=== PATIENT | male | born 1990 | race Caucasian/White ===

== ENCOUNTER 2021-11-18 11:20 | Day surgery (SDC) | payer MEDICAID ==
[2021-11-16 11:38] VITALS: BMI 27.5
--- NOTE | 2021-11-17 15:17 | HP ---
HISTORY AND PHYSICAL DATE OF SURGERY: 11/18/2021 Thanh Goode is a 31-year-old gentleman seen with a septic left knee prepatellar bursitis. I recommended bursectomy. The procedure, risks, complications, benefits and recovery were discussed. He was agreeable. Consent was obtained. PAST MEDICAL HISTORY: Asthma. PAST SURGICAL HISTORY: [place] teeth excision. DAILY MEDICATIONS: Symbicort. ALLERGIES: NONE. SOCIAL HISTORY: He denies tobacco use. PHYSICAL EVALUATION OF LEFT KNEE: There is an area of significant prepatellar swelling. There is also warmth and erythema in that area. There are no open wounds or drainage. His range of motion is zero to 130. There is no intraarticular effusion present. Radiographs of the left knee revealed no bony abnormality. IMPRESSION: Left knee septic prepatellar bursitis. PLAN: Left knee patellar bursectomy. MMODL / IJN: [id number] /
[~2021-11-18 11:20] MED LIST: DEXAMETHASONE SOD PHOSPHATE 4 MG/ML 1 ML VIAL IV ONE; LACTATED RINGERS 1,000 ML IV SCH; LIDOCAINE 1% (10MG/ML) FOR IV START INTRADERMA PRN; MIDAZOLAM 2 MG/2 ML VIAL IV PRN; ONDANSETRON 4 MG/2 ML VIAL IVP ONE
[2021-11-18] MEDS ORDERED: LACTATED RINGERS 1,000 ML IV ONE (12:57)
[2021-11-18] MEDS ORDERED: SCOPOLAMINE 1 MG/72 HR PATCH TRANSDERM ONE (12:57)
[2021-11-18 13:03] LABS: Basophils # (A) 0.1 k/uL (0-0.2); Basophils % (A) 1 %; Eosinophils # (A) 0.1 k/uL (0-0.7); Eosinophils % (A) 2 %; HCT 44.5 % (39.0-53.0); HGB 14.7 gm/dL (13.0-17.5); Lymphocytes % (A) 35 %; MCH 29.5 pg (25.0-35.0); MCHC 33.1 g/dL (31.0-37.0); MCV 89.1 fL (80.0-100.0); Mean Platelet Volume 8.6; Monocytes # (A) 0.2 k/uL (0-1.0); Monocytes % (A) 4 %; Neutrophils # (A) 3.2 k/uL (1.3-7.7); Neutrophils % (A) 57 %; Platelet Count 228 k/uL (150-450); RBC 4.99 m/uL (4.30-5.90); RDW 12.6 % (11.5-15.5); WBC 5.6 k/uL (3.8-10.6)
[2021-11-18 13:20] LABS: Potassium 4.2 mmol/L (3.5-5.1)
[2021-11-18] MEDS ORDERED: MIDAZOLAM 2 MG/2 ML VIAL ONE (14:10)
[2021-11-18] MEDS ORDERED: fentaNYL (PF) 50 MCG/ML 2 ML AMP ONE (14:10)
[2021-11-18] MEDS ORDERED: LIDOCAINE 2% INJ 20 MG/ML (2 ML VIAL) ONE (14:10)
[2021-11-18] MEDS ORDERED: PROPOFOL 10 MG/ML 20 ML VIAL IV ONE (14:10)
[2021-11-18] MEDS ORDERED: BUPIVACAINE (PF) 0.25% 30 ML VIAL SQ ONE ×3 (14:33→15:05)
[2021-11-18] MEDS ORDERED: ceFAZolin 1,000 MG in SODIUM CHLORIDE 0.9% 1,000 ML IRRIGATION ONE (14:42)
--- NOTE | 2021-11-18 14:52 | P.OP ---
Date of Procedure: 11/18/21 Preoperative Diagnosis: Left knee septic prepatellar bursitis Postoperative Diagnosis: Left knee septic prepatellar bursitis Procedure(s) Performed: Left knee patellar bursectomy Anesthesia: HOME, local Surgeon: Ludwin Del Rio Finishing Inspector #1: Arvin Red Estimated Blood Loss (ml): 12 Pathology: none sent Condition: stable Disposition: PACU Indications for Procedure: 31-year-old patient seen with a left knee septic prepatellar bursitis. I discu ssed patellar bursectomy. Patient was agreeable and consent was obtained. Operative Findings: See description of procedure Description of Procedure: Patient was taken to the operative suite. Patient underwent a general anesthetic by the department of anesthesia. Patient received preoperative IV antibiotics. Well-padded tourniquet placed proximal left thigh. The left lower extremity was prepped and draped in the normal sterile orthopedic fashion. The extremity was elevated and the tourniquet was insufflated to 300. Made a standard anterior incision sharply through skin. We dissected down to the bursa. There was obviously inflamed and irritated. We dissected through the bursa now obtained cultures of the serous fluid. There was no purulent fluid present. With the assistance of James RESTREPO providing appropriate retraction I performed a patellar bursectomy. I now made sure all the abnormal-appearing bursal thickening tissue was excised and it was. We now irrigated the wound copiously with 1000 mL of antibiotic irrigant solution. I now explore the wound again and noted no residual abnormal-appearing bursal tissue. The extensor mechanism appeared stable. With the assistance of James RESTREPO we repaired the subcutaneous soft tissues tacking the subcu cutaneous tissue to the fascial layer overlying the knee with Vicryl suture. We now repaired the skin margins with nylon suture. We infiltrated the subcu soft tissues with quarter percent plain Marcaine. We applied sterile dressings. The tourniquet was now released and immediate capillary refill the extremity noted. Sterile web bone Hubert bandage were applied. The patient was awakened, transferred to a bed and recovery stable condition having tolerated procedure well. James RESTREPO assisted in all aspects of the procedure.
[2021-11-18 15:33] VITALS: TEMP 96.8
[2021-11-18] MEDS: HYDROmorphone 0.5 MG/0.5 ML SYRINGE IVP PRN ×2 (15:33→15:42)
[2021-11-18] MEDS: fentaNYL (PF) 50 MCG/ML 2 ML AMP IVP ONE ×2 (15:50→15:53)
[2021-11-18 16:36] VITALS: PULSE 65
[2021-11-18 16:43] VITALS: BP 142/92; RESP 18
== END 2021-11-18 16:55 | disposition home or self-care (01) ==
LOC: OR 11:20
PROVIDERS: ATTEND Orthopaedic Surgery
DX: M71.162 Other infective bursitis, left knee (principal); J45.909 Unspecified asthma, uncomplicated; G47.33 Obstructive sleep apnea (adult) (pediatric)
CPT/HCPCS: 27340; 80051; 85025; 87070; 87205; 87075; J2250; J1100; J0690 ×2; J2405; J3010; J2704; J1170; J2001